=== PATIENT | female | born 1985 | race Caucasian/White ===

== ENCOUNTER 2021-02-12 11:40 | Inpatient (IN) | payer OTHER ==
[2021-02-12 13:26] VITALS: BMI 34.7
[2021-02-12] MEDS ORDERED: OXYTOCIN 20 UNITS in 0.9% NS 20 UNIT/1,000 ML INFUS.BAG IV ONE (14:56)
[2021-02-12] MEDS ORDERED: MORPHINE SULFATE/PF 10 MG/ML ML SPIN ONE (15:23)
[2021-02-12] MEDS ORDERED: ONDANSETRON 4 MG/2 ML VIAL IVPUSH PRN (15:23)
[2021-02-12] MEDS ORDERED: ACETAMINOPHEN 1000 MG/100 ML BAG IVPB ONE (15:25)
[2021-02-12] MEDS ORDERED: ACETAMINOPHEN INJECTION 100 ML IVPB ONE (16:49)
[2021-02-12] MEDS ORDERED: CITRIC ACID/SODIUM CITRATE 30 ML UNIT-DOSE CUP PO ONE (16:49)
[2021-02-12] MEDS ORDERED: ELECTROLYTE-148 SOLN 500 ML IV ONE (16:49)
[2021-02-12] MEDS ORDERED: SENNOSIDES/DOCUSATE COMBO (SENNA PLUS) TABLET (UD) PO PRN (16:53)
[2021-02-12] MEDS ORDERED: ACETAMINOPHEN 325 MG TABLET (FP) PO PRN (16:53)
[2021-02-12] MEDS ORDERED: IBUPROFEN 800 MG/8 ML IJ IVPB PRN (16:53)
[2021-02-12] MEDS ORDERED: METHYLERGONOVINE MALEATE 0.2 MG/1 ML AMP IM PRN (16:53)
[2021-02-12] MEDS ORDERED: ELECTROLYTE-148 SOLN 1,000 ML IV SCH (17:00)
[2021-02-12] MEDS ORDERED: OXYTOCIN 20 UNITS in 0.9% NS 20 UNIT/1,000 ML INFUS.BAG IV SCH (17:00)
[2021-02-12] MEDS: IBUPROFEN 600 MG TABLET (FP) PO PRN (20:22)
[2021-02-13] MEDS: IBUPROFEN 600 MG TABLET (FP) PO PRN (03:28)
[2021-02-13] MEDS: SIMETHICONE 80 MG TAB.CHEW (FP) PO PRN ×4 (03:29→20:02)
[2021-02-13] MEDS ORDERED: oxyCODONE HCL 5 MG TABLET PO PRN (04:53)
[2021-02-13 07:24] LABS: BASO % 0.6 % (0-2.0); EOS % 0.2 % (0-4.5); HEMATOCRIT 37.7 % (32.4-45.2); HEMOGLOBIN 12.7 GM/dL (10.7-15.3); LYMPH % 11.6 % (8-40); MCHC 33.6 g/dl (32.0-36.0); MEAN CELL VOLUME 86.4 fl (80-96); MEAN PLT VOLUME 8.9 fl (7.5-11.1); MONO % 7.1 % (3.8-10.2); NEUT % 80.5 % (42.8-82.8); PLATELET COUNT 185 10^3/uL (134-434); RBC 4.37 M/mm3 (3.60-5.2); RDW 13.6 % (11.6-15.6); WHITE BLOOD COUNT 11.8 K/mm3 (4.0-10.0)
[2021-02-13] MEDS: oxyCODONE HCL 5 MG TABLET PO PRN ×3 (08:26→20:02)
[2021-02-13] MEDS ORDERED: DIPHTH,PERTUSS(ACELL),TET 0.5 ML DISP.SYRIN IM ONE (10:00)
[2021-02-13] MEDS ORDERED: FLU VACC QS2021-22(6MOS UP)/PF 60 MCG/0.5 ML SYRINGE IM ONE (10:00)
[2021-02-13] MEDS: PRENATAL VITAMINS W/ FOLIC ACID TABLET (FP) PO SCH (10:28)
[2021-02-13] MEDS ORDERED: BISACODYL 10 MG SUPP.RECT RC PRN (16:53)
[2021-02-14] MEDS: IBUPROFEN 600 MG TABLET (FP) PO PRN ×3 (00:01→20:18)
[2021-02-14] MEDS: SIMETHICONE 80 MG TAB.CHEW (FP) PO PRN ×4 (00:01→20:18)
[2021-02-14] MEDS: oxyCODONE HCL 5 MG TABLET PO PRN ×3 (04:19→20:47)
[2021-02-14] MEDS: PRENATAL VITAMINS W/ FOLIC ACID TABLET (FP) PO SCH (12:05)
[2021-02-15] MEDS: IBUPROFEN 600 MG TABLET (FP) PO PRN (07:40)
[2021-02-15] MEDS: SIMETHICONE 80 MG TAB.CHEW (FP) PO PRN (07:40)
[2021-02-15] MEDS: PRENATAL VITAMINS W/ FOLIC ACID TABLET (FP) PO SCH (09:48)
[2021-02-15 13:48] VITALS: BP 125/80; PULSE 92; TEMP 98.3
== END 2021-02-15 12:50 | disposition home or self-care (01) | DRG 540 ==
LOC: JLDR 11:40 → J3W 18:07
PROVIDERS: ADMIT Obstetrics & Gynecology; ATTEND Obstetrics & Gynecology
PROC: 10D00Z1 Extraction of Products of Conception, Low, Open Approach (ICD-10-PCS; principal; 2021-02-12)
PROC: 0UL70ZZ Occlusion of Bilateral Fallopian Tubes, Open Approach (ICD-10-PCS; 2021-02-12)
DX: O34.211 Maternal care for low transverse scar from previous cesarean delivery (principal); O42.02 Full-term premature rupture of membranes, onset of labor within 24 hours of rupture; Z37.0 Single live birth; Z30.2 Encounter for sterilization; Z3A.39 39 weeks gestation of pregnancy
CPT/HCPCS: 36415; 85025; 88302-TC; 88307-TC; 90686; 90715; G0008; J0131